=== PATIENT | female | born 1955 | race Caucasian/White ===

== ENCOUNTER 2019-02-12 07:14 | Outpatient (CLI) | payer MEDICARE ==
[~2019-02-12] VITALS: Ht 165.1 cm; Wt 68.6 kg
[2019-02-12 07:50] LABS: HEMATOCRIT 37.7 % (36.0-48.0); HEMOGLOBIN 13.1 g/dL (12-16); MCH 33.2 pg (26.0-34.0); MCHC 34.7 g/dL (31.0-37.0); MCV 95.4 fL (80.0-100.0); RBC 3.95 10x6/uL (4.00-5.40); RDW 13.6 % (11.5-14.5)
[2019-02-12] MEDS ORDERED: HYDROCODON-ACE1 EA10 PO (08:49)
[2019-02-12] MEDS ORDERED: XANAX0.5 MG PO (08:49)
[2019-02-12] MEDS ORDERED: OMEPRAZOLE40 MG PO (08:50)
[2019-02-12] MEDS ORDERED: CARAFATE1 G/10 ML PO (08:50)
[2019-02-12] MEDS ORDERED: PEPCID40 MG PO (08:50)
[2019-02-12] MEDS ORDERED: COREG12.5 MG PO (08:51)
[2019-02-12] MEDS ORDERED: LISINOPRIL40 MG PO (08:51)
[2019-02-12] MEDS ORDERED: FUROSEMIDE20 MG PO (08:51)
[2019-02-12 09:00] VITALS: BP 145/80; Ht 165.1 cm; Wt 68.6 kg
--- NOTE | 2019-02-12 10:29 | NUR ---
1025 DR. IS DELAYED AND PT CHOOSES TO RESCHEDULE. IV IS DC'D WITH CATH INTACT. PT. GETTING DRESSED.
== END 2019-02-12 10:30 | disposition home or self-care (01) ==
LOC: D.OPS 07:14 → EDSTATUS 09:00 → D.OPS 09:00
PROVIDERS: Anesthesiology; ATTEND Surgery
DX: K63.5 Polyp of colon (principal); Z53.29 Procedure and treatment not carried out because of patient's decision for other reasons

== ENCOUNTER 2019-03-12 08:09 | Day surgery (SDC) | payer MEDICARE ==
[~2019-03-12] VITALS: Ht 165.1 cm; Wt 74.8 kg
[~2019-03-12 08:09] MED LIST: CARAFATE1 G/10 ML PO; COREG12.5 MG PO; FUROSEMIDE20 MG PO; HYDROCODON-ACE1 EA10 PO; LISINOPRIL40 MG PO; OMEPRAZOLE40 MG PO; PEPCID40 MG PO; XANAX0.5 MG PO
[2019-03-12 09:26] VITALS: BP 104/63; Ht 165.1 cm; Wt 74.8 kg
--- NOTE | 2019-03-12 12:54 | NUR ---
1225 XRAY DONE. INSTRUCTIONS GIVEN
--- NOTE | 2019-03-12 13:16 | NUR ---
WAITING FOR XRAY REPORT
--- NOTE | 2019-03-15 11:23 | OP ---
PATIENT NAME: VIVIANA MCNAIR MEDICAL RECORD: [id number] :55 LOCATION:D.OPS ADMISSION DATE: SURGEON: RHINA HERNÁNDEZ MD DATE OF OPERATION: 03/12/2019 PREOPERATIVE DIAGNOSIS: Tattooed polyps times 2, one in the ascending colon, one in the proximal transverse colon. POSTOPERATIVE DIAGNOSES: Tattoo polyps times 2, one in the ascending colon, one in the proximal transverse colon with polypoid regrowth at both sites. Two other polyps, one was a flat polyp thus by narrow band imaging and it was a 1.2 cm polyp, the other one was an 8-mm polyp. PROCEDURES: 1. Total colonoscopy to cecum. 2. Hot biopsy forceps polypectomies times 2. 3. Polypectomies at the tattooed sites with cold endoscopic biopsies and then ablation of the polypoid base with the argon plasma perl programmer. 4. Deployment of 2 endoscopic clips. SURGEON: Rhina Hernández MD DISPATCHER RADIOACTIVE WASTE DISPOSAL: None. BLOOD LOSS: Minimal. ANESTHESIA: IV sedation. COMPLICATIONS: None. The risks, possible complications and alternatives to the procedure were explained to the patient. She elects to proceed. ENDOSCOPIC COURSE: The patient was conveyed to endoscopy suite electively on 03/12/2019. IV sedation was induced by the anesthesia staff. The patient was placed in the Bearden position. A digital rectal examination was performed. A colonoscope was inserted through the anus. It was easily advanced to the cecum. I slowly withdrew the endoscope. Two hot biopsy forceps polypectomies were performed. The polyps were removed in their entireties. At the tattooed sites, there was a polypoid regrowth. At both sites, cold endoscopic biopsies were performed and then I ablated the polypoid base with the argon plasma perl programmer. At one site for hemostasis, two endoscopic clips were applied. The pullback was greater than a 25-minute pullback. The scope was then removed under direct vision. The prep was excellent. I dragged the folds on the way out. I will see the patient in my office in 2-3 weeks. I will plan for her next colonoscopy to take place in 1 year. TRANSINT:[id number] Voice Confirmation ID: [id number] DOCUMENT ID: [id number] OPERATIVE REPORT [id number] XU,VIVIANARHINA ACEVES MD at 1123 CC: KANCHAN SAMPSON and KERRY NAJERA [id number] DICTATION DATE: 03/12/19 1209 RELATIONSHIP ASSOCIATE: 03/12/19 1428 [facility] [place] 03/12/19 [place] [id number] [place] [id number]
--- NOTE | 2019-03-15 11:26 | HP ---
PATIENT: VIVIANA MCNAIR MEDICAL RECORD: [id number] ACCOUNT: [id number] LOCATION:DCadeOPS : 55 ADMISSION DATE: 03/12/19 PCP: KANCHAN SAMPSON HISTORY AND PHYSICAL EXAMINATION CHIEF COMPLAINT: Colon polyps. HISTORY OF PRESENT ILLNESS: The patient was noted to have a proximal transverse colon polyp, which was about 4.5 cm polyp and an other polyp was found in the ascending colon, that was a 3 cm polyp. Both were tattooed. The patient is here to undergo surveillance colonoscopy with possible polypectomy. PAST MEDICAL AND SURGICAL HISTORY: Hypertension, heart rhythm problems, gastroesophageal reflux, COPD, anxiety. SOCIAL HISTORY: The patient is a smoker. ALLERGIES: GABAPENTIN. PHYSICAL EXAMINATION: GENERAL: The patient does not appear acutely ill. She does not appear chronically ill. VITAL SIGNS: Reviewed. EARS: External ears appear normal. EYES: Extraocular movements are intact. NECK: Trachea is midline. CHEST: No intercostal retractions. PULMONARY: Nonlabored and no stridor. IMPRESSION: Ascending and transverse colon polyps. PLAN: Colonoscopy, polypectomy, perhaps utilizing endoscopic mucosal resection or the argon plasma fuel cell repairer. TRANSINT:[id number] Voice Confirmation ID: [id number] DOCUMENT ID: [id number] RHINA HERNÁNDEZ MD at 1126 CC: Elda SAMPSON BRENDA [id number] DICTATION DATE: 03/12/19 1112 SALES MANAGEMENT INTERN: 03/12/19 1355 [facility] [place] 03/12/19 [place] [id number] [place] [id number]
== END 2019-03-12 13:50 | disposition home or self-care (01) ==
LOC: D.OPS 08:09
PROVIDERS: ATTEND Surgery
DX: D12.2 Benign neoplasm of ascending colon (principal); D12.3 Benign neoplasm of transverse colon; Z01.812 Encounter for preprocedural laboratory examination